=== PATIENT | male | born 1940 | race Caucasian/White ===

== ENCOUNTER 2020-10-20 11:24 | Emergency (ER) | payer OTHER, BC ==
--- OUTSIDE RECORDS SUMMARY | 2020-10-20 11:26 | XMS REPORT | Continuity of Care Document ---
:1940 Author Organization [facility] t Address [address] [place] [address] Care Team Providers Name Role Phone Unavailable Unavailable Unavailable Payers Payer Name Policy Type Policy Number Effective Date Expiration Date S ource Problems This patient has no known problems. Allergies, Adverse Reactions, Alerts Allergy Allergy Status Severity Reaction(s) Onset Inactive Treating Comm ents Source Name Type Date Date Clinician No Known DA Active U [facility]ie 10-28 [facility] 00:00: [address] Medications This patient has no known medications. Procedures This patient has no known procedures. Results Test Description Test Time Test Comments Results Result [facility] e Comments - US RETROPERITONEAL 2019-02-07 Patient Name: [facility] 11:48:00 ELIDA LO Unit No: [id number] EXAMS: CPT CODE: [id number] US RETROPERITONEAL COM [id number] EXAMINATION: - US RETROPERITONEAL COM. LOCATION: B2. HISTORY: CKD STAGE IV. COMPARISON: None. TECHNIQUE: Routine renal ultrasound was performed. Pre and post void ultrasound images of the urinary bladder were also obtained. FINDINGS: The right kidney is normal in size, measuring 11.9 cm in length. The left kidney is enlarged in size and measures 13.8 cm in length. Cortical echogenicity is increased bilaterally. There is no evidence of renal mass, hydronephrosis or urolithiasis. The urinary bladder appears normal. Bilateral ureteral jets are present. Post void residual urinary bladder volume is normal at 20 mL. The prostate gland is enlarged in size, measuring 6.1 x 4.5 x 4.7 cm with a total volume of 67 mL. IMPRESSION: Increased bilateral renal cortical echogenicity consistent with medical renal disease. Enlarged left kidney. Enlarged prostate gland. Recommend correlation with PSA levels. at 1148 Reported and signed by: Ranjan Hernandez MD CC: GAMA CEDEÑO Technologist: Arturo Koehler [facility] Transcrpt Date/Tm/Trnsp: 02/07/2019 ([id number]) [email or web address] Orig Print D/T: S: 02/07/2019 ([id number]) [facility] NAME: ELIDA LO [id number] [id number] PHYS: UNDEFINED - [place] [address] : 1940 AGE: 78 SEX: M LOC: EvanFloryKRIS PHONE #: [phone] EXAM DATE: 02/07/2019 STATUS: PRE CLI FAX #: [phone] RADIOLOGY NO: PAGE 1 Signed Report
--- NOTE | 2020-10-20 14:15 | RAD REPORT ---
EXAM DESCRIPTION: RAD - Knee Right 3 View - 10/20/2020 2:07 pm CLINICAL HISTORY: Right knee pain status post injury FINDINGS: No fracture or dislocation is seen. If the patient continues have symptoms to suggest an o ccult fracture, ligamentous or meniscal injury then MRI would be recommended
--- NOTE | 2020-10-20 14:17 | RAD REPORT ---
EXAM DESCRIPTION: RAD - Hip Right 2 View - 10/20/2020 2:07 pm CLINICAL HISTORY: Right hip pain FINDINGS: No fracture or dislocation is seen. The bones are osteoporotic. If the patient continues have symptoms to suggest an occult fracture th en MRI would be recommended
--- NOTE | 2020-10-20 14:48 | EDPHYS ---
Physician Documentation [facility] Name: Liang Gibbs Age: 80 yrs Sex: Male : 1940 Arrival Date: 10/20/2020 Time: 11:31 Bed 20 Private MD: ED Physician John Moseley HPI: 10/20 12:34 This 80 yrs old Male presents to ER via Ambulatory with complaints of Fall jmm Injury, Knee Pain, Hip Pain. 12:34 Details of fall: The patient fell from an upright position. Onset: The symptoms/episode jmm began/occurred acutely, just prior to arrival. Associated injuries: The patient sustained right knee. The patient has not experienced similar symptoms in the past. This is an 80 year old male with a history of ESRD that presents to the ED with complaints of right hip pain, right knee pain after slipping on the sand yesterday. Patient was in an upright position and denies hitting his head. . Historical: - Allergies: 11:51 Morphine; em - Home Meds: 11:51 Warfarin Oral [Active]; em - PMHx: 11:51 SBO; ESRD; em - PSHx: 11:51 heart valve replaced; abdomen sx; Hernia repair; Appendectomy; em - Immunization history:: Adult Immunizations up to date. - Social history:: Smoking status: Patient denies any tobacco usage or history of. ROS: 12:34 Constitutional: Negative for fever, chills, and weight loss, Cardiovascular: Negative jmm for chest pain, palpitations, and edema, Respiratory: Negative for shortness of breath, cough, wheezing, and pleuritic chest pain. 12:34 MS/extremity: Positive for injury or acute deformity, pain. 12:34 All other systems are negative. Exam: 12:34 Constitutional: This is a well developed, well nourished patient who is awake, alert, jmm and in no acute distress. Head/Face: atraumatic. Eyes: EOMI, no conjunctival erythema appreciated ENT: Moist Mucus Membranes Neck: Trachea midline, Supple Chest/axilla: Normal chest wall appearance and motion. Cardiovascular: Regular rate and rhythm. No edema appreciated Respiratory: Normal respirations, no respiratory distress appreciated Abdomen/GI: Non distended, soft Back: Normal ROM Skin: General appearance color normal 12:34 Neuro: Awake and alert, normal gait Psych: Behavior is normal, Mood is normal, Patient is cooperative and pleasant 12:34 Musculoskeletal/extremity: right knee is non ttp, rom is normal, mild pain on flexion, dorsalis pulse intact, NVI. Vital Signs: 11:46 BP 137 / 100; Pulse 67; Resp 15; Temp 98.0; Pulse Ox 99% on R/A; Weight 99.79 kg; em Height 5 ft. 10 in. (177.80 cm); Pain 8/10; 12:42 BP 147 / 70; Pulse 71; Pulse Ox 100% on R/A; ap3 13:32 BP 143 / 70; Pulse 63; Pulse Ox 100% on R/A; Pain 2/10; ap3 11:46 Body Mass Index 31.57 (99.79 kg, 177.80 cm) em MDM: 12:28 Patient medically screened. [facility] 14:37 Data reviewed: vital signs, nurses notes. Counseling: I had a detailed discussion with [facility] the patient and/or guardian regarding: the historical points, exam findings, and any diagnostic results supporting the discharge/admit diagnosis, radiology results, the need for outpatient follow up, to return to the emergency department if symptoms worsen or persist or if there are any questions or concerns that arise at home. 14:41 ED course: Patient is alert and non toxic in appearance in the ED. Xray is negative. [facility] Patient is advised to follow up with ortho for further evaluation. patient understood and agrees with the the plan. . 10/20 12:33 Order name: Knee Right 3 View XRAY; Complete Time: 14:28 [facility] 10/20 12:33 Order name: Hip Right 2 View XRAY; Complete Time: 14:28 [facility] 10/20 14:28 Order name: Knee Immobilizer; Complete Time: 14:38 [facility] Administered Medications: No medications were administered Disposition: 10/20/20 14:46 Discharged to Home. Impression: Internal derangement of knee. - Condition is Stable. - Discharge Instructions: Knee Pain. - Medication Reconciliation Form, Thank You Letter, Antibiotic Education, Prescription Opioid Use form. - Follow up: Private Physician; When: 2 - 3 days; Reason: Recheck today's complaints, Continuance of care, Re-evaluation by your physician. Follow up: Philipp Borrego MD; When: 1 - 2 days; Reason: Recheck today's complaints, Continuance of care, Re-evaluation by your physician. Follow up: Narendra Marcial MD; When: 2 - 3 days; Reason: Recheck today's complaints, Continuance of care, Re-evaluation by your physician. Follow up: Segun Nayak MD; When: 2 - 3 days; Reason: Recheck today's complaints, Continuance of care, Re-evaluation by your physician. Follow up: Berto Garcia MD; When: 2 - 3 days; Reason: Recheck today's complaints, Continuance of care, Re-evaluation by your physician. Addendum: 10/28/2020 19:04 Co-signature as Attending Physician, John álvarez Signatures: Dispatcher [employer] EDMS John Moseley MD MD pkl Mickail, Joel, PA PA [facility] Ramon Hanna, Angelica Forde RN, RN RN ap3 Corrections: (The following items were deleted from the chart) 10/20 15:00 14:46 10/20/2020 14:46 Discharged to Home. Impression: Internal derangement of knee. jmm Condition is Stable. Forms are Medication Reconciliation Form, Thank You Letter, Antibiotic Education, Prescription Opioid Use. Follow up: Private Physician; When: 2 - 3 days; Reason: Recheck today's complaints, Continuance of care, Re-evaluation by your physician. jmm 15:04 15:00 10/20/2020 14:46 Discharged to Home. Impression: Internal derangement of knee. ap3 Condition is Stable. Discharge Instructions: Knee Pain. Forms are Medication Reconciliation Form, Thank You Letter, Antibiotic Education, Prescription Opioid Use. Follow up: Private Physician; When: 2 - 3 days; Reason: Recheck today's complaints, Continuance of care, Re-evaluation by your physician. Follow up: Philipp Borrego; When: 1 - 2 days; Reason: Recheck today's complaints, Continuance of care, Re-evaluation by your physician. Follow up: Narendra Marcial; When: 2 - 3 days; Reason: Recheck today's complaints, Continuance of care, Re-evaluation by your physician. Follow up: Dr. Segun Nayak; When: 2 - 3 days; Reason: Recheck today's complaints, Continuance of care, Re-evaluation by your physician. Follow up: Berto Garcia; When: 2 - 3 days; Reason: Recheck today's complaints, Continuance of care, Re-evaluation by your physician. jorge luis
--- NOTE | 2020-10-20 14:48 | ER ---
Nurse's Notes [facility] Name: Liang Gibbs Age: 80 yrs Sex: Male : 1940 Arrival Date: 10/20/2020 Time: 11:31 Bed 20 Private MD: Diagnosis: Internal derangement of knee Presentation: 10/20 11:46 Chief complaint: Patient states: tripped in the sand yesterday evening and landed on em right knee, right elbow, also reports right hip pain, denies hitting head, ambulated into triage. Coronavirus screen: Client denies travel out of the [place] in the last 14 days. Ebola Screen: Patient negative for fever greater than or equal to 101.5 degrees Fahrenheit, and additional compatible Ebola Virus Disease symptoms Patient denies exposure to infectious person. Patient denies travel to an Ebola-affected area in the 21 days before illness onset. No symptoms or risks identified at this time. Initial Sepsis Screen: Does the patient meet any 2 criteria? No. Patient's initial sepsis screen is negative. Does the patient have a suspected source of infection? No. Patient's initial sepsis screen is negative. Risk Assessment: Do you want to hurt yourself or someone else? Patient reports no desire to harm self or others. Onset of symptoms was October 20, 2020. 11:46 Method Of Arrival: Ambulatory em 11:46 Acuity: ESTEE 4 em Historical: - Allergies: 11:51 Morphine; em - Home Meds: 11:51 Warfarin Oral [Active]; em - PMHx: 11:51 SBO; ESRD; em - PSHx: 11:51 heart valve replaced; abdomen sx; Hernia repair; Appendectomy; em - Immunization history:: Adult Immunizations up to date. - Social history:: Smoking status: Patient denies any tobacco usage or history of. Screenin:03 Abuse screen: Denies threats or abuse. Nutritional screening: No deficits noted. ap3 Tuberculosis screening: No symptoms or risk factors identified. Fall Risk Fall in past 12 months (25 points). Secondary diagnosis (15 points) impaired mobility, No IV (0 pts). Ambulatory Aid- Crutches/Cane/Walker (15 pts). Gait- Weak (10 pts.). Mental Status- Oriented to own ability (0 pts). Total De León Fall Scale indicates High Risk Score (45 or more points). Fall prevention measures have been instituted. Side Rails Up X 2 Placed Close to Nursing Station Frequent Obs/Assessments Occuring Family Present and informed to notify staff if the need to leave the bedside As available patient and family educated on Fall Prevention Program and Strategies. Assessment: 12:01 General: Appears in no apparent distress. comfortable, Behavior is calm, cooperative, ap3 appropriate for age. Pain: Complains of pain in right leg Pain currently is 2 out of 10 on a pain scale. at worst was 8 out of 10 on a pain scale. level that patient reports is acceptable is 3 out of 10 on a pain scale. Pain began suddenly, Alleviated by rest, Aggravated by increased activity. Neuro: Level of Consciousness is awake, alert, obeys commands, Oriented to person, place, time, situation, Gait is unsteady. Cardiovascular: Capillary refill < 3 seconds. Respiratory: Airway is patent Respiratory effort is even, unlabored, Respiratory pattern is regular, symmetrical. GI: No signs and/or symptoms were reported involving the gastrointestinal system. : No signs and/or symptoms were reported regarding the genitourinary system. EENT: No signs and/or symptoms were reported regarding the EENT system. Derm: No signs and/or symptoms reported regarding the dermatologic system. Musculoskeletal: Reports pain in right leg [place]19[place] 13:04 Reassessment: Patient and/or family updated on plan of care and expected duration. Pain ap3 level reassessed. Patient is alert, oriented x 3, equal unlabored respirations, skin warm/dry/pink. family at bedside. Vital Signs: 11:46 BP 137 / 100; Pulse 67; Resp 15; Temp 98.0; Pulse Ox 99% on R/A; Weight 99.79 kg; em Height 5 ft. 10 in. (177.80 cm); Pain 8/10; 12:42 BP 147 / 70; Pulse 71; Pulse Ox 100% on R/A; ap3 13:32 BP 143 / 70; Pulse 63; Pulse Ox 100% on R/A; Pain 2/10; ap3 11:46 Body Mass Index 31.57 (99.79 kg, 177.80 cm) em ED Course: 11:31 Patient arrived in ED. mr 11:48 Triage completed. em 11:51 Arm band placed on. em 11:56 Angelica Lind, JASWANT is Primary Nurse. ap3 12:04 Patient has correct armband on for positive identification. Pulse ox on. NIBP on. Door ap3 closed. Noise minimized. 12:10 Eugene Resendez PA is PHCP. [facility] 12:10 John Moseley MD is Attending Physician. [facility] 13:32 radiology for X-Ray. ap3 14:06 Knee Right 3 View XRAY In Process Unspecified. EDMS 14:06 Hip Right 2 View XRAY In Process Unspecified. EDMS 14:39 Knee immobilizer applied on right knee. 5 14:59 Philipp Borrego MD is Referral Physician. [facility] 14:59 Narendra Marcial MD is Referral Physician. [facility] 14:59 Segun Nayak MD is Referral Physician. jmm 15:00 Berto Garcia MD is Referral Physician. [facility] 15:03 No provider procedures requiring assistance completed. Patient did not have IV access ap3 during this emergency room visit. Administered Medications: No medications were administered Outcome: 14:46 Discharge ordered by MD. jmm 15:03 Discharged to home ambulatory, with significant other. ap3 15:03 Condition: good 15:03 Discharge instructions given to patient, significant other, Instructed on discharge instructions, follow up and referral plans. Demonstrated understanding of instructions, follow-up care. 15:04 Patient left the ED. ap3 Signatures: Dispatcher [employer] EDTN Eugene Resendez PA PA [facility] Kristina Suarez HannaRamon RN RN em Martinez, Maria [facility] Angelica Lind RN RN ap3
[2020-10-20 15:29] VITALS: TEMP 98
[2020-10-20 15:30] VITALS: O2SAT 100
[2020-10-20 15:32] VITALS: BP 143/70
== END 2020-10-20 15:04 | disposition home or self-care (01) ==
LOC: ER 11:24
DX: M23.91 Unspecified internal derangement of right knee (principal); N18.6 End stage renal disease; Z95.2 Presence of prosthetic heart valve; W19.XXXA Unspecified fall, initial encounter
CPT/HCPCS: 99283